=== PATIENT | female | born 1975 | race Caucasian/White ===

== ENCOUNTER 2016-09-20 12:52 | Emergency (ER) | payer BC, OTHER | END 2016-09-20 16:52 | disposition home or self-care (01) | LOC: ER1 12:52 | DX: G43.909 Migraine, unspecified, not intractable, without status migrainosus (principal); F41.9 Anxiety disorder, unspecified; F17.200 Nicotine dependence, unspecified, uncomplicated; Z88.2 Allergy status to sulfonamides; Z88.5 Allergy status to narcotic agent; Z88.8 Allergy status to other drugs, medicaments and biological substances; Z79.899 Other long term (current) drug therapy | CPT/HCPCS: 96372; 99283; J1200; J1885; J2270; J2765; Q0163 ==

== ENCOUNTER 2016-11-06 14:14 | Emergency (ER) | payer OTHER | END 2016-11-06 14:44 | disposition home or self-care (01) | LOC: ER1 14:14 | DX: B02.9 Zoster without complications (principal); K21.9 Gastro-esophageal reflux disease without esophagitis; F17.210 Nicotine dependence, cigarettes, uncomplicated; Z88.2 Allergy status to sulfonamides; Z79.899 Other long term (current) drug therapy | CPT/HCPCS: 99282 ==

== ENCOUNTER → 2017-03-21 | Outpatient (CLI) | payer OTHER | LOC: RAD 14:42 | DX: I10 Essential (primary) hypertension (principal) | CPT/HCPCS: 73030 ==

== ENCOUNTER → 2020-08-21 | Outpatient (CLI) | payer OTHER ==
[~2020-08-21] MED LIST: AUGMENTIN 875-1 EACH PO; CEFPODOXIME PR200 MG PO; FELDENE10 MG PO; IBUPROFEN600 MG PO; NORCO 5-325 TA1 EACH PO; NORFLEX 100 MG100 MG PO; OMNICEF 300 MG300 MG PO; PENVEE K 500 M500 MG PO; TORADOL 10 MG T10 MG PO; ZOFRAN4 MG PO
== END ==
LOC: RAD 15:36
DX: M54.5 Low back pain (principal)
CPT/HCPCS: 72110

== ENCOUNTER 2020-08-28 18:54 | Emergency (ER) | payer OTHER ==
[~2020-08-28 18:54] MED LIST changes: -CEFPODOXIME PR200 MG PO
[2020-08-28] MEDS ORDERED: CEFPODOXIME PR200 MG PO (20:14)
== END 2020-08-28 20:25 | disposition left against medical advice (07) ==
LOC: ER1 18:54
DX: A41.9 Sepsis, unspecified organism (principal); N12 Tubulo-interstitial nephritis, not specified as acute or chronic; F17.200 Nicotine dependence, unspecified, uncomplicated; Z88.2 Allergy status to sulfonamides; Z88.5 Allergy status to narcotic agent
CPT/HCPCS: 81001; 87077; 87086; 87186; 93005; 99284

== ENCOUNTER → 2021-11-19 | Outpatient (CLI) | payer OTHER ==
[~2021-11-19] MED LIST changes: +CEFPODOXIME PR200 MG PO
== END ==
LOC: RAD 15:29
DX: M25.552 Pain in left hip (principal)
CPT/HCPCS: 73502